=== PATIENT | female | born 1970 | race Caucasian/White ===

== ENCOUNTER 2021-12-30 19:43 | Emergency (ER) | payer SELFPAY ==
[2021-12-30] MEDS ORDERED: Morphine 4 MG/ML VIAL ONE (20:39)
== END 2021-12-30 22:05 | disposition home or self-care (01) ==
LOC: CSHERS 19:43
DX: S82.841A Displaced bimalleolar fracture of right lower leg, initial encounter for closed fracture (principal); W18.30XA Fall on same level, unspecified, initial encounter
CPT/HCPCS: 27810; 96374; J2270